=== PATIENT | female | born 1940 | race Caucasian/White ===

== ENCOUNTER 2017-12-13 02:36 | Inpatient (IN) | payer OTHER ==
[2017-12-13] VITALS (8 sets, daily range): BP systolic 114–137; BP diastolic 50–61
[~2017-12-13] VITALS: Ht 152.4 cm; Wt 60.3 kg
--- NOTE | ~2017-12-13 | HC ---
[facility] [place] [address] CONSULTATION Name: EMILE SHEEHAN Room #: 359-P [facility] IN M.R.#: [id number] Admission: 12/13/17 Attend Phys: Herminio Lira MD Discharge: 12/16/17 Date of : 38 Report #: [id number] THIS REPORT FOR: //name// CC: Erasmo Lira DATE OF SERVICE: 12/16/2017 HISTORY OF PRESENT ILLNESS: The patient is a 77-year-old white female with history of diabetes mellitus type 2 with diabetic neuropathy, hypertension, hyperlipidemia, was admitted with elevated blood sugars 400-500, diagnosed with bilateral lower extremity cellulitis as well as urinary tract infection. She has been given IV antibiotics. Some lability with her blood sugars. She does have a premorbid seizure disorder, on Keppra, which is being monitored. She has generalized weakness. We are seeing her in rehabilitation medicine consultation. 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 HABITS: No history of tobacco or alcohol abuse. MEDICATIONS: Please see the full medication listing. This list includes vitamins, herbals, and supplements. ALLERGIES: AMOXICILLIN, DOXYCYCLINE, OXYCODONE, PENICILLIN. SOCIAL HISTORY: Lives in her daughter's house on the main floor. She sleeps on a couch, uses a cane outside of the home, is one step in and 12 steps inside. Daughter works during the day and the patient is home alone with the pets. She notes that the dog does not allow other people in the house. She has concerns regarding where she is going to go from here. REVIEW OF SYSTEMS: No current complaints of chest pain, shortness of breath, abdominal discomfort. PHYSICAL EXAMINATION: GENERAL: She is a 77-year-old white female in no obvious distress. VITAL SIGNS: Last recorded temperature 97.7, pulse 72, respirations 18, blood pressure 135/64. NEUROLOGIC: She is alert, decreased vision as noted above. Facies appeared symmetric. Follows basic 1 step commands and appears to be a good historian. She is somewhat verbose. EXTREMITIES: She has functional range of motion of both upper extremities with strength grade 4-/5. DTRs are trace to 1. Lower extremities, no focal calf [address] [address] CONSULTATION Name: EMILE SHEEHAN Room #: 359-P [facility] IN M.R.#: [id number] Admission: 12/13/17 Attend Phys: Herminio Lira MD Discharge: 12/16/17 Date of : 39 Report #: [id number] swelling. Functional range of motion, strength is grade 4/5. Tone appeared to be intact. She was able to sit to stand with contact guard assistance. She is now ambulating 500 feet with a front-wheeled walker, contact guard, although at the end of the walk, she became weaker and needed more assistance. ASSESSMENT: A 77-year-old white female with the following problem list: 1. Bilateral lower extremity cellulitis. 2. Urinary tract infection. 3. Generalized weakness and debilitation. 4. Diabetes mellitus with labile blood sugars. 5. Hyperlipidemia. 6. Seizure disorder. PLAN: Her functional level is improving and she was able to ambulate up a longer distance with less assistance with the walker. Sit to stand transfers are contact guard. Home situation is somewhat challenging as the daughter works and it sounds like the pets that are there do not allow other people in the house. I did not see that she would meet diagnostic criteria for an acute [address] [place] [address] inpatient rehabilitation stay and her overall functional level is improving. We will have case management check into other rehab therapy options for her. Thank you for asking us to assist in this patient's care. <ELECTRONICALLY SIGNED> By: Brad Sweet MD 12/17/17 1429 [id number] [id number] Brad Sweet MD /nt
[2017-12-13 03:20] LABS: BE(vivo) 0.5 mmol/L (-2 to +3); HCO3 26.3 mmol/L (22.0-26.0)
[2017-12-13] MEDS ORDERED: ERYTHROMYCIN E3.5 G2 OPHTHALMIC (03:20)
[2017-12-13] MEDS ORDERED: ATORVASTATIN CA40 MG PO (03:20)
[2017-12-13] MEDS ORDERED: INSULIN SYRING1 EA10 INJECTION (03:21)
[2017-12-13] MEDS ORDERED: KEPPRA XR500 MG PO (03:21)
[2017-12-13] MEDS ORDERED: SYNTHROID75 MCG PO (03:21)
[2017-12-13] MEDS ORDERED: LOSARTAN POTAS100 MG PO (03:22)
[2017-12-13] MEDS ORDERED: GLIPIZIDE-METF1 EAC2 PO (03:22)
[2017-12-13] MEDS ORDERED: ASPIR 8181 MG PO (03:22)
[2017-12-13] MEDS ORDERED: LANTUS100 UNIT/M SUBQ (03:22)
[2017-12-13 03:25] LABS: URINE BILIRUBIN NEGATIVE (Negative); URINE BLOOD 1+ (Negative); URINE COLOR YELLOW; URINE GLUCOSE-RANDOM* 3+ (Negative); URINE KETONES TRACE (Negative); URINE NITRITE-REFLEX NEGATIVE (Negative); URINE PROTEIN (DIPSTICK) 1+ (Negative); URINE UROBILINOGEN 0.2 E.U./dl (0.2-1.0)
[2017-12-13 03:25] LABS: ABSOLUTE NEUTROPHILS 8.1 thou/uL (1.4-8.2); BASOPHILS 0.6 % (0.0-2.0); EOSINOPHILS 1.2 % (0.0-3.0); HEMATOCRIT 37.4 % (37.0-47.0); HEMOGLOBIN 12.7 gm/dL (12.0-15.0); LYMPHOCYTES 21.2 % (24.0-44.0); MCH 32.2 pg (26.0-34.0); MCHC 34.1 g/dL (28.0-37.0); MCV 94.4 fL (80.0-100.0); MONOCYTES 4.9 % (1.0-8.0); PLATELET COUNT 221 thou/uL (150-400); POLYS 72.1 % (36.0-66.0); RBC 3.96 mil/uL (4.20-5.00); RDW 13.1 % (10.5-14.5); WBC 11.2 thou/uL (4.0-11.0)
[2017-12-13 03:32] LABS: CALCIUM 9.1 mg/dL (8.5-10.1); CREATININE 1.2 mg/dL (0.6-1.0)
[2017-12-13 03:33] LABS: URINE CLARITY CLOUDY; URINE LEUKOCYTES-REFLEX 2+ (Negative)
[2017-12-13 03:38] LABS: ALBUMIN 3.5 g/dL (3.4-5.0); TOTAL BILIRUBIN 0.9 mg/dL (<0.1-1.0); TOTAL PROTEIN 7.3 g/dL (6.4-8.2)
[2017-12-13 03:40] LABS: BACTERIA-REFLEX >30 Many /HPF (None Seen); CASTS None Seen /LPF (None Seen); CRYSTALS None Seen /LPF (None Seen); MUCUS 0-3 Light strn/LPF (None Seen); SQUAMOUS 0-3 Few /LPF (0-3); URINE RBC 0-2 Rare /HPF (0-2); URINE WBC-REFLEX >25 Many /HPF (0-5); WBC CLUMPS Packed (None Seen)
[2017-12-13 23:08] LABS: GLYCOHEMOGLOBIN (HGB A1C) 9.8 % (4.8-5.6)
[2017-12-14 03:26] VITALS: BP 122/59
[2017-12-14 06:15] LABS: HEMATOCRIT 33.5 % (37.0-47.0); HEMOGLOBIN 11.7 gm/dL (12.0-15.0); MCH 32.4 pg (26.0-34.0); MCHC 34.8 g/dL (28.0-37.0); MCV 93.3 fL (80.0-100.0); RBC 3.59 mil/uL (4.20-5.00); WBC 8.3 thou/uL (4.0-11.0)
[2017-12-14 06:27] LABS: CALCIUM 8.3 mg/dL (8.5-10.1); CREATININE 0.9 mg/dL (0.6-1.0); POTASSIUM 3.5 mmol/L (3.5-5.1)
[2017-12-14 08:01] VITALS: BP 121/75
[2017-12-14 17:07] VITALS: BP 132/65
[2017-12-14 19:12] VITALS: BP 133/43
[2017-12-15 02:44] VITALS: BP 136/66
[2017-12-15 06:41] LABS: HEMATOCRIT 32.9 % (37.0-47.0); HEMOGLOBIN 11.6 gm/dL (12.0-15.0); MCHC 35.3 g/dL (28.0-37.0); MCV 93.4 fL (80.0-100.0); RBC 3.53 mil/uL (4.20-5.00)
[2017-12-15 07:03] LABS: CALCIUM 8.3 mg/dL (8.5-10.1); POTASSIUM 3.9 mmol/L (3.5-5.1)
[2017-12-15 07:47] VITALS: BP 139/66
[2017-12-15 16:13] VITALS: BP 147/63
[2017-12-15 20:34] VITALS: BP 136/66
[2017-12-16 03:50] VITALS: BP 126/57
[2017-12-16 07:40] VITALS: BP 135/64
[2017-12-16 09:54] VITALS: BP 136/53
[2017-12-16] MEDS ORDERED: LEVAQUIN 500 M500 M1 PO (12:32)
[2017-12-16] MEDS ORDERED: VITAMIN B122500 MC1 PO (14:57)
== END 2017-12-16 15:50 | DRG 602 ==
LOC: ER 02:36 → 3W 03:36 → EROBS 03:36 → 3W 03:58
PROVIDERS: Emergency Medicine; Internal Medicine; Nurse Practitioner Family
DX: L03.116 Cellulitis of left lower limb (principal); N17.0 Acute kidney failure with tubular necrosis; N39.0 Urinary tract infection, site not specified; E11.65 Type 2 diabetes mellitus with hyperglycemia; L03.115 Cellulitis of right lower limb; I10 Essential (primary) hypertension; H54.61 Unqualified visual loss, right eye, normal vision left eye; E78.5 Hyperlipidemia, unspecified; E11.40 Type 2 diabetes mellitus with diabetic neuropathy, unspecified; M19.90 Unspecified osteoarthritis, unspecified site; G40.909 Epilepsy, unspecified, not intractable, without status epilepticus; D72.829 Elevated white blood cell count, unspecified; M62.84 Sarcopenia; E53.8 Deficiency of other specified B group vitamins; Z88.6 Allergy status to analgesic agent; Z88.1 Allergy status to other antibiotic agents; Z88.0 Allergy status to penicillin; Z79.899 Other long term (current) drug therapy; Z79.82 Long term (current) use of aspirin
CPT/HCPCS: 10879

== ENCOUNTER 2018-05-22 15:10 | Emergency (ER) | payer OTHER ==
[~2018-05-22] VITALS: Ht 152.4 cm; Wt 63.5 kg
--- NOTE | ~2018-05-22 | EKG ---
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: : 1940 Requested By: Devin Jean-Baptiste Order Number: [id number] MD: Richard Zhou Measurements Intervals [place] Rate: 82 P: 85 GA: 146 QRS: 54 QRSD: 99 T: 42 QT: 377 QTc: 441 Interpretive Statements Sinus rhythm No significant abnormality Compared to ECG 06/02/2015 01:35:12 No significant change was found Electronically Signed On 05-23-2018 8:38:25 STANDARD MACHINE STITCHER by Richard Zhou [email or web address] <ELECTRONICALLY SIGNED> By: Richard Zhou MD, [facility] 05/23/18 0838 1552 1552 Richard Zhou MD, FACC /EPI
[~2018-05-22 15:10] MED LIST: ASPIR 8181 MG PO; ATORVASTATIN CA40 MG PO; ERYTHROMYCIN E3.5 G2 OPHTHALMIC; GLIPIZIDE-METF1 EAC2 PO; INSULIN SYRING1 EA10 INJECTION; KEPPRA XR500 MG PO; LANTUS SUBQ; LANTUS100 UNIT/M SUBQ; LEVAQUIN 500 M500 M1 PO; LOSARTAN POTAS100 MG PO; NORVASC2.5 MG PO; SYNTHROID100 MC1 PO; SYNTHROID75 MCG PO; VITAMIN B122500 MC1 PO
[2018-05-22 15:44] LABS: BASOPHILS 0.4 % (0.0-2.0); EOSINOPHILS 0.1 % (0.0-3.0); HEMATOCRIT 38.1 % (37.0-47.0); HEMOGLOBIN 12.8 gm/dL (12.0-15.0); LYMPHOCYTES 11.7 % (24.0-44.0); MCH 31.8 pg (26.0-34.0); MCHC 33.6 g/dL (28.0-37.0); MCV 94.6 fL (80.0-100.0); MONOCYTES 3.7 % (1.0-8.0); PLATELET COUNT 225 thou/uL (150-400); POLYS 84.1 % (36.0-66.0); RBC 4.02 mil/uL (4.20-5.00); RDW 12.7 % (10.5-14.5); WBC 14.3 thou/uL (4.0-11.0)
[2018-05-22 15:51] LABS: ANION GAP 11 mmol/L (7-16); BUN 17 mg/dL (7-18); CALCIUM 9.1 mg/dL (8.5-10.1); CHLORIDE 104 mmol/L (98-107); CO2 27 mmol/L (21-32); CREATININE 0.9 mg/dL (0.6-1.0); GLUCOSE 160 mg/dL (74-106); POTASSIUM 3.5 mmol/L (3.5-5.1); SODIUM 142 mmol/L (136-145)
[2018-05-22 15:56] LABS: URINE BILIRUBIN NEGATIVE (Negative); URINE BLOOD NEGATIVE (Negative); URINE CLARITY SL CLOUDY; URINE COLOR YELLOW; URINE GLUCOSE-RANDOM* NEGATIVE (Negative); URINE KETONES NEGATIVE (Negative); URINE LEUKOCYTES-REFLEX NEGATIVE (Negative); URINE NITRITE-REFLEX NEGATIVE (Negative); URINE PROTEIN (DIPSTICK) TRACE (Negative); URINE SPECIFIC GRAVITY >= 1.030 (1.005-1.035); URINE UROBILINOGEN 0.2 E.U./dl (0.2-1.0)
[2018-05-22 16:01] LABS: TROPONIN-I <0.06 ng/mL (<0.06)
[2018-05-22 16:52] LABS: SQUAMOUS 0-3 Few /LPF (0-3)
[2018-05-22 16:53] LABS: AMORPHOUS URATES Moderate /LPF (None Seen); BACTERIA 1-9 Few /HPF (None Seen); CASTS None Seen /LPF (None Seen); URINE RBC None Seen /HPF (0-2); URINE WBC None Seen /HPF (0-5)
[2018-05-22 18:03] VITALS: BP 166/58
== END 2018-05-22 18:04 | disposition home or self-care (01) ==
LOC: ER 15:10
PROVIDERS: Emergency Medicine
DX: S00.03XA Contusion of scalp, initial encounter (principal); R42 Dizziness and giddiness; E11.40 Type 2 diabetes mellitus with diabetic neuropathy, unspecified; E03.9 Hypothyroidism, unspecified; M19.90 Unspecified osteoarthritis, unspecified site; I10 Essential (primary) hypertension; E78.5 Hyperlipidemia, unspecified; Z88.8 Allergy status to other drugs, medicaments and biological substances; Z79.4 Long term (current) use of insulin; W18.39XA Other fall on same level, initial encounter; Y92.89 Other specified places as the place of occurrence of the external cause; Y93.01 Activity, walking, marching and hiking; Y99.8 Other external cause status

== ENCOUNTER 2018-09-03 20:27 | Emergency (ER) | payer OTHER ==
[~2018-09-03] VITALS: Ht 154.9 cm; Wt 68.0 kg
[2018-09-03 21:21] LABS: BE(vivo) -0.4 mmol/L (-2 to +3); HCO3 23.9 mmol/L (22.0-26.0); PCO2 VENOUS 37.8 mmHg (41.0-51.0); PO2 VENOUS 37.2 mmHg (35.0-45.0)
[2018-09-03 21:32] LABS: HEMATOCRIT 38.6 % (37.0-47.0); HEMOGLOBIN 13.3 gm/dL (12.0-15.0); MCH 32.2 pg (26.0-34.0); MCHC 34.4 g/dL (28.0-37.0); MCV 93.7 fL (80.0-100.0); RBC 4.12 mil/uL (4.20-5.00); RDW 13.9 % (10.5-14.5)
[2018-09-03 21:44] LABS: ANION GAP 11 mmol/L (7-16); BUN 14 mg/dL (7-18); CALCIUM 9.6 mg/dL (8.5-10.1); CHLORIDE 101 mmol/L (98-107); CO2 26 mmol/L (21-32); CREATININE 0.9 mg/dL (0.6-1.0); GLUCOSE 156 mg/dL (74-106); POTASSIUM 3.9 mmol/L (3.5-5.1); SODIUM 138 mmol/L (136-145)
[2018-09-03 21:59] LABS: ALBUMIN 3.7 g/dL (3.4-5.0); LIPASE 97 U/L (73-393); SGOT 22 U/L (15-37); SGPT 17 U/L (30-65); TOTAL BILIRUBIN 0.7 mg/dL (<0.1-1.0); TOTAL PROTEIN 7.5 g/dL (6.4-8.2); TROPONIN-I <0.06 ng/mL (<0.06)
[2018-09-03 22:12] LABS: URINE BILIRUBIN NEGATIVE (Negative); URINE BLOOD NEGATIVE (Negative); URINE CLARITY CLEAR; URINE COLOR YELLOW; URINE GLUCOSE-RANDOM* NEGATIVE (Negative); URINE KETONES TRACE (Negative); URINE LEUKOCYTES-REFLEX NEGATIVE (Negative); URINE NITRITE-REFLEX NEGATIVE (Negative); URINE PROTEIN (DIPSTICK) NEGATIVE (Negative); URINE SPECIFIC GRAVITY <= 1.005 (1.005-1.035); URINE UROBILINOGEN 0.2 E.U./dl (0.2-1.0)
[2018-09-03] MEDS ORDERED: AMPICILLIN TRI500 MG PO (23:44)
[2018-09-03] MEDS ORDERED: FOLIC ACID1 MG PO (23:45)
[2018-09-04 01:46] VITALS: BP 144/57
--- NOTE | 2018-09-04 08:34 | EKG ---
[address] [address] ELECTROCARDIOGRAM REPORT Name: EIMLE SHEEHAN [facility] [id number] ������������������ Admission: 09/03/18 ������������������ Attend Phys: Discharge: 09/04/18 ������������������ Date of : 39 Report #: [id number] ����������������������������������������������������������������� [id number] THIS REPORT FOR: //name// [facility] ED Test Date: 2018-09-03 Test Time: 21:20:40 Pat Name: EMILE SHEEHAN Department: Room: Gender: F Defensive Driving Instructor: : 1940 Requested By: Laina Vann Order Number: [id number] MD: Efe Kang Measurements Intervals [place] Rate: 82 P: VT: QRS: 33 QRSD: 75 T: 27 QT: 382 QTc: 446 Interpretive Statements Sinus rhythm Compared to ECG 05/22/2018 15:52:15 Electronically Signed On 09-04-2018 8:34:13 CDT by Efe Kang [email or web address] ��������������������������������������������� <ELECTRONICALLY SIGNED> ���������������������������������������� By: Efe Kang MD ��������������������������������������������� 09/04/18 0834 212 19 Efe Kang MD /REBECCA
== END 2018-09-04 01:48 | disposition home or self-care (01) ==
LOC: ER 20:27
PROVIDERS: Student in an Organized Health Care Education/Training Program
DX: R19.7 Diarrhea, unspecified (principal); R25.1 Tremor, unspecified; E11.40 Type 2 diabetes mellitus with diabetic neuropathy, unspecified; E03.9 Hypothyroidism, unspecified; M19.90 Unspecified osteoarthritis, unspecified site; I10 Essential (primary) hypertension; E78.5 Hyperlipidemia, unspecified; Z88.1 Allergy status to other antibiotic agents; Z88.8 Allergy status to other drugs, medicaments and biological substances; Z79.4 Long term (current) use of insulin

== ENCOUNTER 2020-05-30 15:29 | Inpatient (IN) | payer OTHER ==
[~2020-05-30] VITALS: Ht 154.9 cm; Wt 56.7 kg
[2020-05-30 15:29] VITALS: BP 173/63
[~2020-05-30 15:29] MED LIST changes: +AMPICILLIN TRI500 MG PO; +FOLIC ACID1 MG PO
[2020-05-30 16:02] LABS: ABSOLUTE NEUTROPHILS 7.7 thou/uL (1.4-8.2); BASOPHILS 0.3 % (0.0-2.0); EOSINOPHILS 0.3 % (0.0-3.0); HEMATOCRIT 36.5 % (37.0-47.0); LYMPHOCYTES 17.8 % (24.0-44.0); MCH 33.4 pg (26.0-34.0); MCV 101.4 fL (80.0-100.0); PLATELET COUNT 211 thou/uL (150-400); POLYS 74.6 % (36.0-66.0); RDW 13.7 % (10.5-14.5); WBC 10.3 thou/uL (4.0-11.0)
[2020-05-30] MEDS ORDERED: METFORMIN HCL500 M3 PO (16:03)
[2020-05-30 16:19] LABS: ANION GAP 10 mmol/L (7-16); BUN 20 mg/dL (7-18); CALCIUM 9.8 mg/dL (8.5-10.1); CHLORIDE 105 mmol/L (98-107); CO2 25 mmol/L (21-32); CREATININE 0.9 mg/dL (0.6-1.0); GLUCOSE 155 mg/dL (74-106); POTASSIUM 3.7 mmol/L (3.5-5.1); SODIUM 140 mmol/L (136-145)
[2020-05-30 16:24] LABS: URINE BILIRUBIN NEGATIVE (Negative); URINE BLOOD NEGATIVE (Negative); URINE CLARITY CLEAR; URINE COLOR YELLOW; URINE GLUCOSE-RANDOM* NEGATIVE (Negative); URINE KETONES NEGATIVE (Negative); URINE PROTEIN (DIPSTICK) NEGATIVE (Negative); URINE SPECIFIC GRAVITY 1.025 (1.005-1.035); URINE UROBILINOGEN 0.2 E.U./dl (0.2-1.0)
[2020-05-30 16:26] LABS: URINE LEUKOCYTES-REFLEX 1+ (Negative); URINE NITRITE-REFLEX POSITIVE (Negative)
[2020-05-30 16:29] LABS: AMP/METHAMP Negative (Negative); BARBITURATES Negative (Negative); BENZODIAZEPINES Negative (Negative); COCAINE Negative (Negative); METHADONE Negative (Negative); OPIATES Negative (Negative); PCP Negative (Negative)
[2020-05-30 16:36] LABS: ALBUMIN 3.6 g/dL (3.4-5.0); BACTERIA-REFLEX >30 Many /HPF (None Seen); CASTS None Seen /LPF (None Seen); CRYSTALS None Seen /LPF (None Seen); MAGNESIUM 1.9 mg/dL (1.8-2.4); SGOT 64 U/L (15-37); SGPT 36 U/L (30-65); SQUAMOUS 0-3 Few /LPF (0-3); TOTAL BILIRUBIN 0.6 mg/dL (0.2-1.0); TOTAL PROTEIN 7.1 g/dL (6.4-8.2); TROPONIN-I <0.06 ng/mL (<0.06); URINE RBC None Seen /HPF (0-2); URINE WBC-REFLEX 6-15 Few /HPF (0-5)
[2020-05-30] MEDS ORDERED: LEVO-T75 MCG PO (18:30)
[2020-05-30] MEDS ORDERED: NOVOLOG100 UNIT/1 SUBQ (18:31)
[2020-05-30] MEDS ORDERED: LEVOTHYROXINE88 MC1 PO (18:32)
[2020-05-30 21:14] VITALS: BP 136/58
[2020-05-30 21:27] VITALS: BP 118/49
[2020-05-30 22:09] VITALS: BP 128/55
--- NOTE | 2020-05-31 03:54 | NUR ---
ASSUMED CARE OF PT FROM ED AT 2215HRS. PT AOX1-2 AND CAN BE CONFUSED AND FORGETFUL. FALL PRECAUTION IN PLACE. PT WAS ORIENTED TO THE UNIT AND HER ROOM. PT IS A POOR HISTORIAN. SEIZURE PRECAUTION IN PLACE. PT DENIED PAIN, NAUSEA OR SOA. PT HAS REDNESS AROUND THE COCCYX AREA AND HAS DRY FEET. DIAMOND IN PLACE AND IS PATIENT. ORDERS RECEIVED AND STARTED. PT TURNED Q2H. PT WAS ABLE TO GET COMFORTABLE AND SLEEP PART OF THE SHIFT. VSS AND NO S/S OF ACUTE DISTRESS. WILL CONTINUE TO MONITOR.
[2020-05-31 03:56] VITALS: BP 122/47
--- NOTE | 2020-05-31 07:14 | EKG ---
[address] [address] ELECTROCARDIOGRAM REPORT Name: LATESHA SHEEHANNDA Fredo Room #: 435-P ADM IN M.R.#: [id number] Admission: 05/30/20 Attend Phys: Kenny Macias MD Discharge: Date of : 39 Report #: [id number] [facility] ED Test Date: 2020-05-30 Test Time: 16:01:32 Pat Name: EMILE SHEEHAN Department: Room: [facility] Gender: F Governor Assembler Hydraulic: JUAN : 1940 Requested By: Marcial Nix Order Number: [id number] MD: Dorian Syed Measurements Intervals [place] Rate: 88 P: 63 WI: QRS: 45 QRSD: 90 T: 51 QT: 373 QTc: 452 Interpretive Statements NSR Artifact in lead(s) I,II,aVR,aVL,aVF Compared to ECG 09/03/2018 21:20:40 Electronically Signed On 05-31-2020 7:14:13 RAIL OPERATOR by Dorian Syed [email or web address] <ELECTRONICALLY SIGNED> By: Dorian Syed MD, [facility] 05/31/20 0714 160 160 Dorian Syed MD, [facility] /EPI
[2020-05-31 08:00] VITALS: BP 113/45
--- NOTE | 2020-05-31 09:58 | NUR ---
ASSESSMENT: CM REVIEWED CHART AND SPOKE WITH PATIENT. PT WAS ADMITTED DUE TO SEIZURE LIKE ACTIVITY AND UTI. PT LIVES AT HOME WITH HER OLDEST DAUGHTER ORACIO IN A HOUSE. PT HAS ABOUT ONE STEP TO ENTER THE HOME AND NORMALLY SLEEPS ON THE COUCH ON THE MAIN LEVEL. PT HAS ABOUT 14 STEPS WITH HANDRAILS IF SHE WERE TO GO TO HER BEDROOM ON THE SECOND LEVEL. DAUGHTER REPORTS HER MOTHER SPENDS 99 PERCENT OF THE TIME ON THE MAIN LEVEL. PT NORMALLY USES A QUAD CANE FOR AMBULATION. PT HAS HAD [facility]CS IN THE PAST BUT NOT RECENTLY. CM DISCUSSED ROLE. CM WILL CONTINUE TO FOLLOW TO ASSIST NEEDED PHYSICAL THERAPY WILL SEE PATIENT AND CM WILL FOLLOW FOR RECOMMENDATIONS.
--- NOTE | 2020-05-31 12:19 | NUR ---
ASSUMED CARE AT 0700. PT IS A&O 1-2. PT IS A SET UP FOR MEALS. PT CAN EAT INDEPENDENTLY. ROMELIA. VICKYG WNL. FALL PRECAUTION
[2020-05-31 16:38] VITALS: BP 128/68
[2020-05-31 19:45] VITALS: BP 138/63
[2020-06-01 04:10] VITALS: BP 128/50
[2020-06-01 06:11] LABS: HEMOGLOBIN 11.6 gm/dL (12.0-15.0); MCH 33.8 pg (26.0-34.0); MCHC 33.2 g/dL (28.0-37.0); MCV 101.7 fL (80.0-100.0); RBC 3.44 mil/uL (4.20-5.00); RDW 13.8 % (10.5-14.5)
[2020-06-01 06:31] LABS: CALCIUM 8.7 mg/dL (8.5-10.1); CREATININE 0.9 mg/dL (0.6-1.0); MAGNESIUM 1.8 mg/dL (1.8-2.4); POTASSIUM 3.9 mmol/L (3.5-5.1)
--- NOTE | 2020-06-01 07:42 | HC ---
[facility] [place] [address] CONSULTATION Name: EMILE SHEEHAN Room #: 435-P ADM IN M.R.#: [id number] Admission: 05/30/20 Attend Phys: Kenny Macias MD Discharge: Date of : 39 Report #: [id number] THIS REPORT FOR: cc: FAM - No family physician/PCP FAM - No family physician/PCP Arlene Hernandez DPM ~ DATE OF SERVICE: 05/30/2020 HISTORY OF PRESENT ILLNESS: The patient is being seen at bedside by Podiatry for elongated, thickened, fungal, painful toenails. She denies any recent treatment to her feet, states they are painful with ambulation. The patient's feet also with poor hygiene and thick, dry skin especially to the bottom of the soles. The patient was admitted a few days ago for twitching and issues with her history of seizures. Pt is also a diabetic. LOWER EXTREMITY PHYSICAL EXAMINATION: On physical exam, for the feet, palpable pedal pulses, CFT brisk to all toes. There are hammertoes 2 through 5, bilateral. All toenails are thickened, dystrophic, fungal, elongated and brittle with subungual debris. There are no breaks in the skin or signs of infection. There is dry, flaky hyperkeratotic, loose tissue to encompassing multiple areas of the foot and ankles, bilateral. Her light touch sensation is diminished to all pedal dermatomes. Muscle strength +5/5 to all pedal groups. ASSESSMENT AND PLAN: Following alcohol prep, sharp debridement of all fungal toenails noted above to a healthier base, using a sterile 15 nail forceps. No micro bleeding occurred. Recommend good hygiene with soap and water daily washed and a moisturizer. The patient also with diabetes and currently on insulin. It appears, per note, the patient will be discharged to a nursing home facility soon. . Recommend outpatient Podiatry clinic evaluations at least every 3-6 months <ELECTRONICALLY SIGNED> By: Arlene Hernandez DPM 06/01/20 0742 1700 2209 Arlene Hernandez DPM /nt
[2020-06-01 08:30] VITALS: BP 118/58
--- NOTE | 2020-06-01 09:39 | NUR ---
ASSUMED CARE AT 0700. PT IS A&O X1. PT HAS SOFT ABD. HEART AND LUNGS SOUNDS ARE REGULAR. SCD HOSE ARE IN PLACE. SEIZURE PRECAUTION. FALL PRECAUTION. CALL LIGHT WITHIN REACH. SKIN IS PEELING EVERYWHERE. PT DENIES ANY PAIN,N,V. WILL CONTINUE TO MONITOR SKIN. PT HAS REDNESS ON BUTTOCK. ZGUARD IS APPLIED. PT IS CONFUSED AND FORGETFUL. FEET IS VERY DRY. DIAMOND IS IN PLACE. WILL CONTINUE TO MONITOR. VSS.
--- NOTE | 2020-06-01 13:39 | NUR ---
on-going assessment: CM REVIEWED CHART AND SPOKE WITH Apryl TELLEZ. Apryl LIASON STATING THEY CAN ACCEPT PT TO [facility]. CM NOTIFIED PT AND HER DAUGHTER ORACIO AND THEY ARE AGREEABLE WITH THE PLAN. CM NOTIFIED ATTENDING THAT Apryl CAN ACCEPT. Apryl REQUEST A NEGATIVE COVID TEST WITHIN 24-48 HRS AND PT HAD A TEST COMPLETED 05/30 AT 1540 AND NOTIFIED Apryl TELLEZ.
[2020-06-01] MEDS ORDERED: KEPPRA 500 MG500 MG PO (13:47)
[2020-06-01] MEDS ORDERED: PEPCID20 MG PO (13:47)
[2020-06-01 17:19] VITALS: BP 124/54
[2020-06-01 19:23] VITALS: BP 135/59
--- NOTE | 2020-06-02 02:35 | NUR ---
PLEASANT LADY. A LITTLEFORGETFUL. CONTINUES ON IV FLUIDS AND IV ABTS. SWALLOWS MEDS WITH NO TROUBLE. AFEBRILE.REPOSITIONS SELF IN BED WELL. PLAN FOR DISCHARGE TO REHAB/[facility] TOMORROW.
[2020-06-02 06:06] LABS: HEMATOCRIT 35.8 % (37.0-47.0); HEMOGLOBIN 11.8 gm/dL (12.0-15.0); MCV 103.2 fL (80.0-100.0); RBC 3.47 mil/uL (4.20-5.00); RDW 13.8 % (10.5-14.5)
[2020-06-02 06:25] LABS: CALCIUM 8.9 mg/dL (8.5-10.1); CREATININE 0.9 mg/dL (0.6-1.0); POTASSIUM 4.5 mmol/L (3.5-5.1)
[2020-06-02 07:46] VITALS: BP 114/57
--- NOTE | 2020-06-02 10:07 | NUR ---
ON-GOING ASSESSMENT: CM REVIEWED CHART AND SPOKE WITH Apryl LIASON WHO REPORTS PT WAS UNABLE TO GO TO 5[facility] LAST NIGHT DUE TO STAFFING. PLANS ARE FOR PT TO GO TO [facility] TODAY. HOWEVER THEY ARE REQUESTING ANOTHER NEGATIVE COVID TEST BE COMPELTED PRIOR TO GOING TO [facility] SINCE IT IS NOW PAST 48 HRS. CM NOTIFIED BEDSIDE RN. COVID TEST ORDERED AND IF RESULT IS NEGATIVE PT WILL DISCHARGE TO [facility] TODAY. PT AND DAUGTHER AWARE.
== END 2020-06-02 15:32 | DRG 101 ==
LOC: ER 15:29 → 4S 17:56 → EROBS 17:56 → ER 21:48 → 4S 21:48
PROVIDERS: Emergency Medicine; ADMIT Internal Medicine; ATTEND Internal Medicine
PROC: 0HBRXZZ Excision of Toe Nail, External Approach (ICD-10-PCS; principal; 2020-05-30)
DX: G40.109 Localization-related (focal) (partial) symptomatic epilepsy and epileptic syndromes with simple partial seizures, not intractable, without status epilepticus (principal); M62.82 Rhabdomyolysis; N39.0 Urinary tract infection, site not specified; Z20.828 Contact with and (suspected) exposure to other viral communicable diseases; H54.61 Unqualified visual loss, right eye, normal vision left eye; E03.9 Hypothyroidism, unspecified; M19.90 Unspecified osteoarthritis, unspecified site; I10 Essential (primary) hypertension; B96.1 Klebsiella pneumoniae [K. pneumoniae] as the cause of diseases classified elsewhere; G47.00 Insomnia, unspecified; E78.5 Hyperlipidemia, unspecified; E11.42 Type 2 diabetes mellitus with diabetic polyneuropathy; R63.4 Abnormal weight loss; Z68.23 Body mass index [BMI] 23.0-23.9, adult; Z79.899 Other long term (current) drug therapy; Z88.8 Allergy status to other drugs, medicaments and biological substances
CPT/HCPCS: 10100; 10195

== ENCOUNTER 2020-06-01 14:52 | Inpatient (IN) | payer OTHER ==
[~2020-06-01] VITALS: Ht 154.9 cm; Wt 56.7 kg
[~2020-06-01 14:52] MED LIST changes: +KEPPRA 500 MG500 MG PO; +LEVO-T75 MCG PO; +LEVOTHYROXINE88 MC1 PO; +METFORMIN HCL500 M3 PO; +NOVOLOG100 UNIT/1 SUBQ; +PEPCID20 MG PO
[2020-06-02 16:17] VITALS: BP 124/58
--- NOTE | 2020-06-02 18:27 | NUR ---
ASSUMED CARE OF PT AT 1600 WHEN PT BROUGHT TO UNIT. RECEIVED REPORT FROM ROSALIO PRIOR TO TRANSFER. ADMISSION HX AND ASSESSMENT COMPLETED, ADMISSION VITAL SIGNS, EDUCATION, HEIGHT AND WEIGHT COMPLETED. CONSULTS CALLED, CONSENTS SIGNED. ORDERS RECEIVED TO RESTART INSULIN ORDERED DOWNSTAIRS. ACCU CHECKS ACHS. PT IS FORGETFUL AND A&OX3. VITAL SIGNS ARE STABLE. PT DENIES PAIN. FALL PRECAUTIONS IN PLACE AND NURSING WILL CONTINUE TO MONITOR.
[2020-06-02 20:21] VITALS: BP 124/46
--- NOTE | 2020-06-03 02:37 | NUR ---
LANTUS AND SLIDING SCALE INSULIN GIVEN AT FOR BLOOD SUGAR OF 319. PATIENT DOES NOT KNOW WHEN HER LAST BM WAS AND IS UNCLEAR ABOUT SEIZURE HISTORY DETAILS. 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
[2020-06-03 07:18] VITALS: BP 132/53
[2020-06-03 07:52] VITALS: BP 132/53
[2020-06-03 09:28] LABS: HEMATOCRIT 39.9 % (37.0-47.0); MCH 33.1 pg (26.0-34.0); MCHC 32.5 g/dL (28.0-37.0); MCV 101.9 fL (80.0-100.0); RBC 3.92 mil/uL (4.20-5.00); RDW 13.7 % (10.5-14.5); WBC 7.6 thou/uL (4.0-11.0)
[2020-06-03 09:38] LABS: CALCIUM 9.4 mg/dL (8.5-10.1); POTASSIUM 3.7 mmol/L (3.5-5.1)
--- NOTE | 2020-06-03 19:58 | NUR ---
ASSUMED CARE OF PT AT 0700. PT IS A&OX1-2 AND VITAL SIGNS ARE STABLE. PT DENIES PAIN AND PARTICIPATED IN SCHEDULED THERAPIES. ORDERS FOR CLAMPING OF DIAMOND, DIAMOND WAS CLAMPED FOR 4 HOURS WITH 600 ML ON BLADDER SCANNER, PT DENIED FEELING FULLNESS AT THAT TIME. CATHETER UNCLAMPED AND EMPTIED APPROXIMATELY 600ML AND DIAMOND LEFT IN AT THIS TIME. FALL PRECAUTIONS IN PLACE AND NURSING WILL CONTINUE AT THIS TIME.
[2020-06-03 20:45] VITALS: BP 132/56
[2020-06-04 02:06] LABS: GLYCOHEMOGLOBIN (HGB A1C) 7.9 % (4.8-5.6)
--- NOTE | 2020-06-04 02:32 | NUR ---
PATIENT UP IN CHAIR ALL EVENING AND WAS ABLE TO WALK TO BED WITH 1 PERSON ASSIST AND CANE. LOBO TO MARCUS. TURNING SELF IN BED. PATIENT SLEEPING WELL IN FULL VIEW OF NURSES STATION
[2020-06-04 07:10] VITALS: BP 111/38
--- NOTE | 2020-06-04 15:03 | NUR ---
Alert and orientated X4. Calm, cooperative and compliant. Mentions father/stepfather/husbands service in often as well as time spent as a teenager in [place]. Able to ambulate a few steps and assist with transferring. Breath sounds clear. Reg HR auscultated. Color pink with brisk capillary refill and palpable peripheral pulses. Yellow urine per colby to DD. Active bowel sounds over soft, rounded abdomen. Large, formed brown stool per commode. BG 70 this AM, glargine insulin held and Dr. Yan notified. Glargine dose decreased to 16U SQ and given mid AM per order. Currently sitting quietly in room without s/o distress. Participated in therapies t/o day.
[2020-06-04 20:00] VITALS: BP 128/62
--- NOTE | 2020-06-05 04:48 | NUR ---
Assumed care of patient this pm shift. Patient in good spirits, calm and cooperative. Alert and oriented x4. Takes medications whole with thin fluids. Assist x1 to go to the bathroom for a bowel movement this evening. Unsteady gait. Falls precautions in place. Hoyos catheter in place. Assessment shows no signs of acute distress. No concerns or questions at this time. We will continue to monitor per hospital policy.
[2020-06-05 06:05] LABS: ABSOLUTE NEUTROPHILS 4.1 thou/uL (1.4-8.2); BASOPHILS 0.6 % (0.0-2.0); EOSINOPHILS 2.9 % (0.0-3.0); HEMOGLOBIN 11.3 gm/dL (12.0-15.0); MCH 33.6 pg (26.0-34.0); MCHC 33.1 g/dL (28.0-37.0); MCV 101.3 fL (80.0-100.0); PLATELET COUNT 185 thou/uL (150-400); POLYS 55.5 % (36.0-66.0); RBC 3.35 mil/uL (4.20-5.00); RDW 13.7 % (10.5-14.5); WBC 7.3 thou/uL (4.0-11.0)
[2020-06-05 06:22] LABS: ALBUMIN 2.8 g/dL (3.4-5.0); CALCIUM 9.1 mg/dL (8.5-10.1); CREATININE 0.8 mg/dL (0.6-1.0); MAGNESIUM 1.8 mg/dL (1.8-2.4); PHOSPHORUS 4.2 mg/dL (2.6-4.7); POTASSIUM 3.9 mmol/L (3.5-5.1); TOTAL BILIRUBIN 0.3 mg/dL (0.2-1.0); TOTAL PROTEIN 5.9 g/dL (6.4-8.2)
[2020-06-05 08:00] VITALS: BP 103/50
--- NOTE | 2020-06-05 17:27 | NUR ---
ASSUMED CARE AT 0700 TODAY. SHE IS IN HER BED. SHE IS PLEASANT AND COOPERATIVE WITH ASSESSMENT AND TAKING HER MEDICATION. LUNGS CTA, ABD SOFT WITH + BOWEL SOUNDS. SHE WAS UP WITH PT. TODAY. SHE WAS ASSISTED TO THE BATHROOM ON SEVERAL OCCASIONS AND HAD 2 LOOSE STOOLS. THE AREA TO HER COCCYX WAS PINK. SHE WAS CLEANED UP
[2020-06-05 21:25] VITALS: BP 133/61
[2020-06-06 07:45] VITALS: BP 104/40
--- NOTE | 2020-06-06 09:05 | NUR ---
PT ALERT AND ORIENTED TO PLACE, PERSON, AND MONTH. PT HAS DIAMOND TO DD WITH CLEAR YELLOW URINE. PT DENIES ANY PAIN AT THIS TIME. PT UP WITH ASSIST WITH PT THIS AM. PT ABLE TO PUT ON SHOES WITH ASSIST. PT USES WALKER WHEN AMBULATING.
--- NOTE | 2020-06-06 11:34 | NUR ---
INITIAL REHAB ASSESSMENT: SW reviewed chart. Pt was admitted to on 06/02. SW placed call to pt's room. No answer. SW left voice message for pt's dtr, Gisella. Per chart, pt lives at home with her dtr, Gisella. Prior to admission, pt was using a walker to assist as needed. There is 1 step to enter the home. Pt has used [facility] in the past. Team conference to be held tomorrow afternoon. SW is following to assist as needed with discharge planning.
--- NOTE | 2020-06-06 15:00 | NUR ---
PT UP WALKING WITH THERAPY. PT TOLERATING ACTIVITY WELL.
[2020-06-06 19:58] VITALS: BP 125/51
--- NOTE | 2020-06-07 00:38 | NUR ---
ASSUMED CARE OF PT AT 1915 ON 06/06/20. PT IS A&OX4. IS ON ROOM AIR. DENIES PAIN. IS STABLE. IS UP WITH CONTACT GUARD ASSIST, GB, WALKER. PT IS JERKY AT TIMES WITH AMBULATION. HAS A SHUFFLED/QUICK STEP GAIT. FALL PRECAUTIONS & HOURLY ROUNDING CONTINUED THIS SHIFT. PT REFUSED TO REMOVE CLOTHES & PUT ON PJS. DIAMOND IN PLACE FOR RETENTION. IS TO BE REMOVED AT 0700 TODAY. VITALS ASSESSED. LABS REVIEWED. IS ABLE TO TURN SELF IN BED. IS CURRENTLY ASLEEP. CALL LIGHT WITHIN REACH. WILL CONTINUE TO MONITOR.
[2020-06-07 07:49] VITALS: BP 102/47
--- NOTE | 2020-06-07 09:57 | NUR ---
DIAMOND CATH REMOVED.
--- NOTE | 2020-06-07 13:09 | NUR ---
team conference: pt admitted to rehab w/metabolic encephalopathy. gait 175ft w/contact guard, 80-75 w/fww. severe memory deficit. mod cognitive deficit. d/c plan: target d/c date 06/16 w/ hh: pt. ot. st. pt will need 24/12 supervision as pt is unpredictable w/mobility.
[2020-06-07 17:53] LABS: URINE BILIRUBIN NEGATIVE (Negative); URINE BLOOD TRACE (Negative); URINE CLARITY SL CLOUDY; URINE COLOR YELLOW; URINE GLUCOSE-RANDOM* TRACE (Negative); URINE KETONES NEGATIVE (Negative); URINE LEUKOCYTES 3+ (Negative); URINE NITRITE NEGATIVE (Negative); URINE PROTEIN (DIPSTICK) NEGATIVE (Negative); URINE UROBILINOGEN 0.2 E.U./dl (0.2-1.0)
[2020-06-07 18:06] LABS: CASTS None Seen /LPF (None Seen); CRYSTALS None Seen /LPF (None Seen); SQUAMOUS 4-10 Moderate /LPF (0-3); URINE WBC >25 Many /HPF (0-5)
[2020-06-07 18:07] LABS: URINE RBC 0-2 Rare /HPF (0-2)
[2020-06-07 20:00] VITALS: BP 116/48
--- NOTE | 2020-06-08 02:26 | NUR ---
assumed care approx 1900 evening 06/07. pt sitting up in recliner watching tv at change of shift. pt pleasantly confused, forgetful, and cooperative. pt took hs meds with applesauce tolerating well. pt up to bathroom with walker to void in toilet twice so far tonight. pt appears to be sleeping off and on. bed alarm on and call light in reach. will continue to monitor.
[2020-06-08 08:00] VITALS: BP 122/54
--- NOTE | 2020-06-08 15:22 | NUR ---
ASSUMED CARE AT 0700. PT SLEPT FAIRLY WELL YESTERDAY. PT IS ALERT AND ORIENTATED. REPORTED PAIN IN HER L GREAT TOE AND WAS GIVEN TYELNOL AT SHIFT CHANGE. BLOOD SUGAR CHECKED AND MEDICATED WITH INSULIN AND GLIPIZIDE. PT APPETITE GOOD AND ATE 100%. HAD A LARGE BM TODAY. PARTICIPATING IN THERAPY AND PROGRESSING FAIRLY WELL. DIAMOND REMOVED YESTERDAY AND PT HAS VOIDED SEVERAL TIMES SINCE.
[2020-06-08 19:45] VITALS: BP 122/56
--- NOTE | 2020-06-09 03:36 | NUR ---
06-08-19 CARE TRAMSFERRED 191. PT AAOX3, VSS, RR EVEN AND NONLABORED ON RA. OBSERVED PT SLOW SHUFFLING GAIT WITH WALKER USING GAIT BELT. ZERO S/S OF ACUTE DISTRESS NOTED, PT WILL CONTINUE TO BE MONITOR PER PROTOCOL.
[2020-06-09 08:00] VITALS: BP 120/49
--- NOTE | 2020-06-09 13:26 | NUR ---
CM FAXED REFERRAL TO [facility] . [phone].
--- NOTE | 2020-06-09 16:26 | NUR ---
ASSUMED CARE AT 0700. PT IS ALERT AND ORIENTATED. DENIES ANY PAIN. SLEPT FAIRLY WELL YESTERDAY. APPETITE GOOD. UP WITH SBA TO BATHROOM. PT COMPLAINED OF HAVING "BUZZING IN THE EARS", "TWITCHING" DURING THERAPY SESSION. NO SIGNS OF ANY SEIZURE ACTIVITY NOTED. ALONSO LEMUS AWARE AND ASK FOR NEURO CONSULT. LEFT MESSAGE WITH NEUROLOGY TO SEE PT. PARTICIPATING IN [facility] THERAPIES MUCH TOLERATED. PLAN FOR [facility] ON 06/16/20 WITH HH. CONT TO MONITOR.
[2020-06-09 19:54] VITALS: BP 137/50
--- NOTE | 2020-06-10 00:45 | NUR ---
PATIENT SAT UP IN BED ALL EVENING. SHE IS A/0X4. SHE DENIES PAIN. SHE WAS UP X 1 SO FAR TO USE THE RESTROOM. SHE IS ASSIST X 1 WITH GAITBELT. SHE HAD LARGE SOFT STOOL. SHE DECLINED HER DOCUSATE SODIUM TONIGHT. PATIENT TOOK MEDS WHOLE WITH APPLESAUCE. HER ACCUCHECK WAS 251 TONIGHT. PATIENT CONTINUES TO RECIEVE ANTIBIOTICS FOR UTI. SHE DENIES BURNING,FREQUENCY OR PRESSURE ON URINATION. VSS. ROUTINE ROUNDS TO ASSESS STATUS AND SAFETY OF PATIENT. CONTINUING TO MONITOR.
[2020-06-10 05:29] LABS: HEMATOCRIT 34.4 % (37.0-47.0); HEMOGLOBIN 11.3 gm/dL (12.0-15.0); MCH 33.7 pg (26.0-34.0); MCV 102.2 fL (80.0-100.0); RBC 3.37 mil/uL (4.20-5.00); RDW 13.9 % (10.5-14.5); WBC 6.9 thou/uL (4.0-11.0)
[2020-06-10 06:13] LABS: CREATININE 0.9 mg/dL (0.6-1.0); MAGNESIUM 2.1 mg/dL (1.8-2.4); POTASSIUM 4.1 mmol/L (3.5-5.1)
[2020-06-10 08:00] VITALS: BP 117/47
--- NOTE | 2020-06-10 11:34 | NUR ---
[facility] requesting name of PCP. SW reviewed chart and spoke with pt's dtr, Gisella. Pt's PCP is Dr. Erasmo Nuñez at [facility]. SW provided info to [employer] planners. Discharge home with HH is planned for 06/16. [facility] is following to assist as needed with discharge planning.
--- NOTE | 2020-06-10 12:43 | NUR ---
PATIENT HAS BEEN UP, WORKING WITH THERAPY MOST OF THE DAY. SHE IS ALERT, AND ORIENTED X 1-2, SHE IS FORGETFUL, AND CONFUSED AT TIMES. PATIENT IS EATING MEALS, AND DRINKING FLUID WELL, CONSUMED 100% OF BREAKFAST/LUNCH. PATIENT TOOK ALL MEDICATION WHOLE IN APPLE SOURCE WITHOUT DIFFICULTY. LCTA, BS+X4, ABD SOFT, NON-TENDER TO TOUCH. PATIENT HAD MED SOFT BOWEL MOVEMENT THIS AFTERNOON. MRI OF THE HEAD COMPLETED, RESULT IN CHART. PATIENT DENIES HAVING PHYSICAL PAIN. BLOOD SUGAR THIS MORNING WITH RESULT OF 124, INSULIN GIVEN PER ORDER. BLOOD SUGAR BEFORE LUNCH WITH RESULT OF 60, A CUP OF APPLE JUICE GIVEN, INSULIN HELD PER NURSE PRACTITIONER'S ORDER. NO S/S OF HYPOGLYCEMIA NOTED. BLOOD SUGAR RECHEKED WITH RESULT OF 158. NO SIGN OF ACUTE DISTRESS NOTED AT THIS TIME, CURRENTLY IN BED RESTING, CALL LIGHT IN REACH, WILL CONTINUE TO MONITOR.
[2020-06-10 20:00] VITALS: BP 116/50
--- NOTE | 2020-06-11 03:57 | NUR ---
Assumed care this pm shift. Patient calm and cooperative. Alert and oriented x3. Takes medications whole in applesauce. Patient is considered a falls risk, falls precautions in place. Assist x1. Incontinent of bowel and bladder. Assessment shows no signs of acute distress. No new concerns voiced this shift. We will continue to monitor per hospital policy.
[2020-06-11 08:00] VITALS: BP 106/60
--- NOTE | 2020-06-11 13:15 | HC ---
[facility] [place] [place] [address] CONSULTATION Name: EMILE SHEEHAN Room #: 514-P ADM IN M.R.#: [id number] Admission: 06/02/20 Attend Phys: Brad Sweet MD Discharge: Date of : 39 Report #: [id number] THIS REPORT FOR: cc: FAM - No family physician/PCP FAM - No family physician/PCP Genesis Gallagher DO ~ HISTORY OF PRESENT ILLNESS: The patient is an 80-year-old female. I was asked to see in neurological consultation for a humming noise in her head. The patient states this humming noise began when she came to the hospital. Reviewing the medical record, she was brought to the hospital for intermittent twitching in the upper extremities. The patient was initially seen by Dr. King. Since she arrived in the hospital, the twitching resolved. She was found to have a UTI with a high CPK of just over 2000. Her TSH was also elevated at 16. She does have known hyperthyroidism. The patient also has a history of seizure disorder and was on Keppra. The twitching apparently improved with Keppra. Dr. King felt that the UTI may have aggravated the twitching. The patient has had a recent levetiracetam level drawn and it was 30.9 with normal being between 10 and 40. The patient was seen on rehab, she was sitting up in a chair. She told me that when she puts her feet on the ground, she feels this vibrating or humming sensation. When she takes her feet off the ground, she can then hear the vibrating sensation in her head. She has never had her hearing checked, but had no difficulty understanding me when I spoke to her. She denies neck or back pain. She denies weakness in her arms or legs. She does admit to having difficulty with her balance. I asked her how long she has had diabetes, which she was unable to tell me how long she has had it. The patient has had an EEG, which was nonspecific and showed some theta range slowing, but no epileptiform discharges. She has also had a CT scan of the head and this CT scan done 05/30/2020 showed no acute abnormalities, but she does have moderate volume loss and mild microvascular disease. PAST MEDICAL HISTORY: Hypothyroidism, vitamin D deficiency, hypertension, diabetes mellitus with peripheral neuropathy, hyperlipidemia, and degenerative arthritis. PAST SURGICAL HISTORY: Unremarkable. MEDICATIONS: In hospital include atorvastatin 40 mg daily, vitamin D 1000 units daily, B12 500 mcg daily, Colace 100 mg b.i.d., Lovenox 40 mg subcutaneous at bedtime, Pepcid 20 mg daily, Flomax 0.4 mg daily, folic acid 1 mg daily, Lantus insulin 15 units daily, sliding scale Humalog insulin, Humalog 5 units subQ with meals, Keppra 500 mg b.i.d., levothyroxine 100 mcg daily. ALLERGIES: Vitamin C, sorbitol, and doxycycline. [address] [address] CONSULTATION Name: EMILE SHEEHAN Room #: 514-P [facility] IN M.R.#: [id number] Admission: 06/02/20 Attend Phys: Brad Sweet MD Discharge: Date of : 39 Report #: [id number] VITAL SIGNS: Temperature 36.6, pulse rate 86, respiratory rate 18, blood pressure 137/50. Bedside pulse oximetry 97% on room air. LABORATORY DATA: Hematology: White blood cell count 6.9, hemoglobin 11.3, hematocrit 34.4, MCV 102.2, platelet count 188,000. Chemistry: Sodium 143, potassium 4.1, chloride 105, carbon dioxide 31, BUN 29, creatinine 0.9, glucose 163. Hemoglobin A1c 7.9. Liver functions normal. B12 done on 05/30/2020, 404. NEUROLOGIC: Cranial nerves 2-12 are grossly intact. Motor exam demonstrates symmetrical strength in all 4 extremities. The patient was sitting in a chair and was able to straighten her leg and lift it just over parallel to the floor. Reflexes are absent in the upper and lower extremities. Plantar responses are flexor. Coordination reveals intact [id number]. Sensory exam demonstrates decreased light touch to the knees in a stocking glove fashion. Proprioception appeared intact. IMPRESSION: This patient states that she has a humming noise in her head and when she puts her feet on the floor, has a humming sensation in her feet as well. The sensation is not present when she lies in bed in her feet. The patient may have tinnitus. It can be described by different people in different ways. She has had a normal CT of the head; however, I have ordered an MRI of the head today. This will be done without contrast. She also has a documented history of peripheral neuropathy and this may account for the vibratory sensation. She also has a low normal B12 and that it is just in the 400 range. She is on supplementation, but I have ordered a B12 level to make certain that she is absorbing the B12 was well. As an outpatient, I would recommend the patient have her hearing checked and that she be seen by an german professor or perhaps even an ENT. I did explain to her that if she has tinnitus, there is unfortunately no good medication for this. She also has diabetic peripheral neuropathy. I do not know that I would recommend any medication for that as it is not painful and gabapentin and although very safe can sometimes interfere with balance. I would recommend an outpatient EMG to see how advanced her neuropathy is. I thank you for your kind referral on this patient. <ELECTRONICALLY SIGNED> By: Genesis Gallagher DO 06/11/20 1315 [id number] Genesis Gallagher DO /nt
--- NOTE | 2020-06-11 19:47 | NUR ---
Alert and orientated X 3. Unusual, repetive topics. Calm, cooperative and compliant. Reg, steady gait with walker, impulsive at times. Breath sounds clear. Reg HR auscultated. Color pink with brisk capillary refill and palpable peripheral pulses. Continent of yellow urine and small brown stool per toilet. Active bowel sounds over soft, rounded abdomen. BG 228-124, insulin given per order.
[2020-06-11 19:50] VITALS: BP 121/44
--- NOTE | 2020-06-12 02:09 | NUR ---
MEDS WHOLE IN APPLESAUCE, UP TO TOILET WITH WALKER AND GAIT BELT. AWARE OF NEED FOR BED ALARM, BUT FEELS HERSELF GETTING STRONGER AND MORE STEADY DAY BY DAY. TALKS STEP BY STEP DURING MANY OF HER ACTIVITIES ABOUT THEIR RATIONALE.
[2020-06-12 09:49] VITALS: BP 121/47
--- NOTE | 2020-06-12 17:30 | NUR ---
ASSUMED CARE AT 0700 THIS MORNING. PT. IN BED, RESTING. SHE WAS AWAKENED FOR A BLOOD SUGAR AND VITALS. SHE IS PLEASANT AND COOPERATIVE WITH STAFF. SHE URINATED 2 TIMES TODAY. SHE WAS INCONTINENT ONE TIME OF THE TWO. SHE HAD A BOWEL MOVEMENT ONE TIME TODAY ALSO. SHE IS STAND BY ASSIST OF ONE. SHE SHE IS A&OX3. WHEN SHE IS TRYING TO EAT, REARRANGE THING, ETC, SHE WILL BE NOTED TO TALK TO HERSELF. WHEN ASKED ABOUT THIS, SHE REPLIED "IT JUST HELPS ME" SHE TOOK HER MEDICATIONS WITH [facility]. HER BLOOD SUGARS HAVE VARIED TODAY FROM 88 THIS MORNING TO 258 AT SUPPER TIME.
[2020-06-12 20:28] VITALS: BP 125/47
--- NOTE | 2020-06-13 02:15 | NUR ---
DENIES PAIN, IS ABLE TO WALK TO TOILET WITH CLOSE STANDBY ASSIST, GAIT BELT, AND WALKER WITH PADDED QUALITY ASSURANCE SUPERVISOR BODY. SIGNIFICANT STRESS INCONTINENCE WITH NEW BRIEF NEEDED APPROX 3 TIMES DAILY TO KEEP PANTS DRY. GLUCOSE 135 AT HS. TAKING MEDS SITTING AT BEDSIDE WITH APPLESAUCE HERE IS HER HABIT AT HOME. IN ROOM 514 NEAR NURSE STATION FOR FREQUENT OBSERVATION, HAS BEEN USING THE CALL LIGHT TO ASK FOR HELP PRIOR TO GETTING UP THIS SHIFT
[2020-06-13 08:00] VITALS: BP 121/55
--- NOTE | 2020-06-13 11:14 | NUR ---
ANIA reviewed chart. Discharge home with [facility] is planned for , 06/16. ANIA spoke with Ayla in intake at to provide update and confirm discharge plan. ANIA is following to assist as needed with discharge planning.
--- NOTE | 2020-06-13 14:31 | HC ---
[facility] [place] [address] CONSULTATION Name: EMILE SHEEHAN Room #: 514-P [facility] IN M.R.#: [id number] Admission: 06/02/20 Attend Phys: Brad Sweet MD Discharge: Date of : 39 Report #: [id number] THIS REPORT FOR: cc: CESAR - Judi family physician/PCP CESAR - No family physician/PCP Donte Malik PhD ~ DATE OF SERVICE: 06/11/2020 NEUROBEHAVIORAL STATUS EXAM ATTENDING PHYSICIAN: Brad Sweet MD TERMINAL COMPUTER OPERATOR: Dotne Malik, PhD CLINICAL PRESENTATION: The patient is an 80-year-old female, initially admitted to the [facility] through the Emergency Department with intermittent twitching. She has a past medical history that includes diabetes mellitus type 2, hypertension, hyperlipidemia, DJD, arthritis, neuropathy, hypothyroidism, seizure disorder, UTI and right eye blindness. On admission to the Emergency Department, she had a CT scan, which was negative for any acute abnormalities and toxicology was negative. She was admitted to the rehabilitation unit. Her assessment on admission to the rehabilitation unit was acute metabolic encephalopathy, medical complexity with generalized debility, UTI, rhabdomyolysis, questionable seizure disorder, hypothyroidism, vitamin D deficiency, hypertension, diabetes type 2 with peripheral neuropathy, hyperlipidemia, DJD and right eye blindness. A complete description of her medical condition and history can be found in her medical record. Neuropsychological consultation was requested to provide assistance in the assessment of cognitive and emotional status and provide recommendations and services as needed. Prior to this most recent admission, the patient was living with her daughter and grandson. The patient has 3 children. 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 There has been no prior treatment for depression or anxiety. Her in 2010. She indicates that she has never been able to drive. The patient was managing her own medication. TECHNIQUES UTILIZED: Clinical interview, review of medical records, staff consultation and behavioral observation, mini mental status exam 2 standard version, clock drawing, family interview-daughter. EXAMINATION FINDINGS: The patient was alert and cooperative with the assessment. She accurately described events surrounding her admission. There [facility] [address] [place] [address] CONSULTATION Name: AGUILAEMILE G Room #: 514-P [facility] IN M.R.#: [id number] Admission: 06/02/20 Attend Phys: Brad Sweet MD Discharge: Date of : 39 Report #: [id number] is no evidence of aphasia. Her thoughts are logical and goal oriented. There is no evidence of thought disorder. She does not report auditory or visual hallucinations. She denies feelings of depression or anxiety at this time. Her daughter describes a decline in her cognitive functioning that has about a five year duration with a more significant decline in the last two years. Recently, she has noticed medications that were not filled and . Her behavior had been very sedentary with minimal exercise or daily activity, possibly indicating depression. Patient describes her symptoms to include memory, tiredness and fatigue and difficulty with word finding. There is no history of alcohol/drug abuse. She indicates having been managing her own medications prior to this recent hospitalization. However, as indicated her daughter does not report that the patient has been properly managing medication. Performance on the MMSE 2 brief version was extremely low with a raw score of 9/16. She was 3/3 for initial registration, 3/5 for orientation to time, 3/[address] and 0/3 for immediate recall of 3 items after brief time delay and distraction. Performance on the MMSE 2 brief version was extremely low with a raw score of 19/30, which is a T score of 21 and percentile rank of less than 1. She was 1/5 for serial sevens, 2/2 for naming, 1/1 for repetition, 3/3 for auditory comprehension. She could read and follow a single command and write a sentence. The patient was able to copy a simple geometric design. She was unable to draw a clock or adequately place the hands within the clock or set the hands at a designated time suggesting visual spatial/constructive deficits along with executive dysfunction. The patient is presenting with variability in orientation with impaired immediate recall and sustained concentration. Executive deficits are also noted. DIAGNOSTIC IMPRESSION: Major neurocognitive disorder (dementia), unspecified, without behavior disorder -- likely in the mild range with moderate deficits in cognition. RECOMMENDATIONS: The patient will require increased supervision in the management of medication along with finances and nutrition. A followup neuropsychological evaluation will be of benefit to clarify neurocognitive status. Her daughter should be informed of the increasing supervision that will be [address] [address] CONSULTATION Name: EMILE SHEEHAN Room #: 514-P [facility] IN ..#: [id number] Admission: 06/02/20 Attend Phys: Brad Sweet MD Discharge: Date of : 39 Report #: [id number] necessary to maintain safety. Additionally, compensatory strategies are necessary for the deficits in neurocognitive functioning. Thank you very much for allowing me to provide the consultation on this patient. <ELECTRONICALLY SIGNED> By: Donte Malik, PhD 06/13/20 1431 [id number] Donte Malik, PhD /nt
[2020-06-13 19:57] VITALS: BP 120/49
--- NOTE | 2020-06-13 23:24 | NUR ---
PATIENT WAS UP IN CHAIR WHEN I ASSUMED CARE OF HER AT 1900. CHAIR ALARM WENT OFF SHE STOOD TO PUT HERSELF BACK IN BED. PATIENT FORGETS TO CALL FOR HELP AND USE THE CALL LIGHT AT TIMES. PATIENT IS A/0X3. SHE DENIES PAIN. SHE IS UP TO THE BATHROOM WITH GAIT BELT AND WC OR WALKER WITH ASSIST X 1. VSS. PATIENT'S HS ACCUCHECK WAS 185. NO INSULIN ORDERS FOR THIS TIME. PATIENT TOOK HER MEDS WHOLE WITH APPLESAUCE. PATIENT HAS BEEN RESTING IN BED AND WATCHING TV TONIGHT. BED ALARM IS ON. CALL LIGHT IN REACH. ROUTINE ROUNDS TO ASSESS STATUS AND SAFETY OF PATIENT. CONTINUING TO MONITOR.
[2020-06-14 07:40] VITALS: BP 112/52
--- NOTE | 2020-06-14 08:50 | NUR ---
PT SITTING IN CHAIR THIS AM. PT LIKES TO TAKE HER MEDS IN APPLESAUCE. PT LUNGS CLEAR. PT UP WITH WALKER WITH ASSIST. PT TOLERATING HER DIET. LBM 06/13. PT LIKES HER INSULIN GIVEN IN HER ABD NOT HER ARM.
--- NOTE | 2020-06-14 11:32 | NUR ---
FEROZ MAGAÑA W/ORACIO TO INFORM [facility] WILL CONTACT PT ONCE HOME TO ARRANGE VISITS. ORACIO STATED SHE WILL BE AT [facility] TODAY THIS AFTERNOON FOR FAMILY TRAINING AND STATED SHE CAN COMIT TO 24/12 SUPERVISON AND HELP W/CARES "I DONT GO ANYWHERE, I EVEN HAVE MT GROCERIES DELIVRED." PT ALSO NOTIFIED OF PLAN.
--- NOTE | 2020-06-14 13:15 | NUR ---
team conference: pt admitted to aru w/dx metabolic encephalopathy. gait 200ft standby w/fww. needs help managing medication. mod to severe cog/mem deficit. f/u w nueropsych with /dr. savage. cm provided pt w/card. pt needs fww walker. d/c plan is thurs w/hh. pt dtr is present at 5n for family training per team.
[2020-06-14 19:24] VITALS: BP 118/46
--- NOTE | 2020-06-15 01:57 | NUR ---
PATIENT IS ALERT X 4. SKIN WARM AND DRY. IS A VEGATARIAN. WALKS WITH QUAD CANE WHEN UP TO BATHROOM. WEARS BREIFS. ON ROOM AIR. LUNGS CTA. TAKES PILLS WITH APPLESAUCE. PAIN UNDER CONTROL. HAS FINE TREMORS NOTED. DOES WALK WITH A STEADY GAIT. WILL BE DC ON SATURDAY WITH HOME HEALTH. DENIES ANY PAIN A PRESENT. HAD A BM TONIGHT. REMAINS INCONT AT TIMES. CONT PLAN OF CARE.
[2020-06-15 08:00] VITALS: BP 112/64
[2020-06-15] MEDS ORDERED: LANTUS100 UNIT/M SUBQ (11:23)
[2020-06-15] MEDS ORDERED: TYLENOL325 MG PO (11:23)
[2020-06-15] MEDS ORDERED: VITAMIN D325 MC1 PO (11:23)
[2020-06-15] MEDS ORDERED: NOVOLOG100 UNIT/1 SUBQ (11:23)
[2020-06-15] MEDS ORDERED: FOLIC ACID1 MG PO (11:23)
[2020-06-15] MEDS ORDERED: LIPITOR40 MG PO (11:23)
[2020-06-15] MEDS ORDERED: FLOMAX0.4 MG PO (11:23)
[2020-06-15] MEDS ORDERED: VITAMIN B-12500 MCG PO (11:23)
[2020-06-15 12:05] VITALS: BP 112/64
--- NOTE | 2020-06-15 12:08 | NUR ---
All parties anticipating dc to home with [facility] tomorrow. [facility] [employer] liason to issue the pt a rwalker for home use. Script is on the chart. Will follow to finalize and fax HH orders in the am.
--- NOTE | 2020-06-15 15:29 | PLAN ---
[facility] [place] [address] REHAB UNIT PLAN OF CARE Name: EMILE SHEEHAN Room #: 514-P ADM IN M.R.#: [id number] Admission: 06/02/20 Attend Phys: Brad Sweet MD Discharge: Date of : 39 Report #: [id number] THIS REPORT FOR: cc: CESAR - No family physician/PCP CESAR - No family physician/PCP Brad Sweet MD ~ DATE OF SERVICE: 06/04/2020 PROGRESS NOTE/OVERALL PLAN OF CARE SUBJECTIVE: The patient was seen back earlier. She was in no distress. Temperature 36.8, pulse 80, respirations 16, blood pressure 111/38. She is being monitored closely by nursing and is close to the nursing station. The hospitalist service is monitoring her diabetes and medical management. She has the Hoyos catheter in place. She is working in therapies with transfers, min assist. Gait min assist 65 feet front-wheeled walker. In occupational therapy, lower body dressing is moderate assistance. In speech therapy, she is noted to have moderate cognitive deficits with severe memory deficits. ASSESSMENT: An 80-year-old white female with the following problem list: 1. Toxic metabolic encephalopathy. 2. Medical complexity with generalized debilitation. 3. Urinary tract infection. 4. Rhabdomyolysis. 5. Questionable seizure disorder. 6. Hypothyroidism. 7. Vitamin D deficiency. 8. Hypertension. 9. Diabetes mellitus type 2 with peripheral neuropathy. 10. Hyperlipidemia. 11. Degenerative arthritis. PLAN: The overall plan of care is based on the preadmission screen and information garnered from therapy assessments. 1. Estimated length of stay is probably at least 2 weeks. 2. Medical prognosis is reasonably good. 3. Anticipated interventions include the interdisciplinary acute inpatient rehabilitation program. 4. Anticipated functional outcomes would be for the patient to hopefully improve as far as transfers, mobility, and ADLs so that she can be ambulatory with the walker, perform basic ADLs and also to improve as far as cognition, so that she can return back to the home setting. 5. Discharge destination would be back home with her daughter. Daughter is noted to be working from home. 6. Expected therapy by discipline includes PT, OT and speech 1 [place] [address] REHAB UNIT PLAN OF CARE Name: EMILE SHEEHAN Room #: 514-P ADM IN [facility].#: [id number] Admission: 06/02/20 Attend Phys: Brad Sweet MD Discharge: Date of : 39 Report #: [id number] each five days a week throughout the duration of the acute inpatient rehabilitation stay. The patient's prognosis for significant practical improvement within a reasonable period of time appears good. Given the patient's complex medical condition and risk of further medical complication, rehabilitation services could not be safely provided at a lower level of care such as a retirement facility. <ELECTRONICALLY SIGNED> By: Brad Sweet MD 06/15/20 1529 [id number] Brad Sweet MD /TORREY
--- NOTE | 2020-06-15 17:00 | NUR ---
PT PLEASANTLY CONFUSED AND FORGETFUL. SHE WAS REMINDED THAT SHE WILL DC TO HOME TOMORROW AFTER 4PM, AND SHE STATED, "i AM GOING HOME TOMORROW? i DIDN;T KNOW THAT!" PT IS AWARE OF SOME OF HER MEDICATIONS, AND TAKES MEDS IN APPLESAUCE WITHOUT DIFFICULTY. PT WAS INCONT OF BLADDER DUE TO URGENCY X 1 TODAY AND WAS ASSISTED WITH BRIEF CHANGE. SHE HAS NOT C/O PAIN AT THIS TIME, AND HAS NOT HAD ANY "SHAKING" EPISODES OR COMPLAINTS.
[2020-06-15 19:50] VITALS: BP 115/50
--- NOTE | 2020-06-16 04:05 | NUR ---
UP TO TOILET WITH SBA, GAIT BELT, WALKER. STRESS INCONTINENCE DUE TO URGENCY. CALLS FOR ASSIST. DECLINED LIDOCAINE PATCH, DENIES PAIN. LOOKING FORWARD TO DISCHARGE
[2020-06-16 07:30] VITALS: BP 122/52
--- NOTE | 2020-06-16 10:24 | NUR ---
ASSUMED CARE AT 0700. PATIENT IS ALERT AND ORIENTED X3. PATIENT WYNN'S, MANAGER FUNCTIONAL ARE EQUAL. LUNGS ARE CLEAR. ABD IS SOFT WITH BSX4. PATIENT UP TO THE BR WITH SBA. PATIENT HAS STRESS INCONTINENTS AND REQUIRED NEW BRIEF. FALL AND SAFETY PROTOCOLS IN PLACE. UP IN THE CHAIR FOR MEALS. DENIES PAIN AT THIS TIME. CONTINUES TO PROGRESS TOWARDS D/C GOALS. PLAN D/C LATER TODAY. WILL SEND D/C SUMMARY AND H & P WITH DAUGHTER. WALKER WAS DELIVERED TO PATIENTS ROOM. WILL CONTINUE TO MONITER.
[2020-06-16 11:02] VITALS: BP 112/64
--- NOTE | 2020-06-16 11:08 | NUR ---
FAXED DISCHARGE ORDERS/SUMMARY TO [facility]. P [phone]; FAX [phone]
--- NOTE | 2020-06-16 16:59 | NUR ---
DISCHARGE INSTRUCTIONS GIVEN TO PATIENT AND DAUGHTER. PATIENT LEFT UNIT IN GOOD CONDITION, WITH WALKER. UP WITH SBA. DAUGHTER
--- NOTE | 2020-06-16 17:44 | NUR ---
PT WAS SBA FROM W/C TO CAR. PATIENT SEATBELT WAS APPLIED AND SHE LEFT WITH HER DAUGHTER IN GOOD CONDITION.
--- NOTE | 2020-06-19 21:06 | EEG ---
[facility] [place] [address] ELECTROENCEPHALOGRAM Name: EMILE SHEEHAN Room #: 514-P [facility] IN M.R.#: [id number] Admission: 06/02/20 Attend Phys: Brad Sweet MD Discharge: 06/16/20 Date of : 39 Report #: [id number] THIS REPORT FOR: //name// DATE OF SERVICE: 06/07/2020 This patient is being evaluated for altered mental status. EEG was done by placing the electrode by standard 10-20 system of electrode placement. Both referential and sequential montages were used for recording. Background activity in this patient's EEG is about 7 Hz and 20 microvolt. Photic stimulation is unremarkable. The patient went to sleep that is associated with bilateral slowing and vertex sharp waves. Throughout the record, no active epileptiform activity was noticed. IMPRESSION: This patient's EEG is intermixed with some theta range slowing. That is a nonspecific abnormality, which can occur with encephalopathy, effect of psychotropic medication, dementia, etc. Clinical correlation is recommended. <ELECTRONICALLY SIGNED> By: Jamel Godinez MD 06/19/20 2106 1844 [id number] Jamel Godinez MD /nt
== END 2020-06-16 17:43 | disposition home health service (06) | DRG 92 ==
PROVIDERS: Internal Medicine; Nurse Practitioner Family; Psychiatry & Neurology Psychiatry; ADMIT Physical Medicine & Rehabilitation; ATTEND Physical Medicine & Rehabilitation
DX: G92 Toxic encephalopathy (principal); N39.0 Urinary tract infection, site not specified; M62.82 Rhabdomyolysis; N17.9 Acute kidney failure, unspecified; R53.81 Other malaise; E03.9 Hypothyroidism, unspecified; E55.9 Vitamin D deficiency, unspecified; I10 Essential (primary) hypertension; E11.42 Type 2 diabetes mellitus with diabetic polyneuropathy; E78.5 Hyperlipidemia, unspecified; M19.90 Unspecified osteoarthritis, unspecified site; G40.909 Epilepsy, unspecified, not intractable, without status epilepticus; F01.50 Vascular dementia, unspecified severity, without behavioral disturbance, psychotic disturbance, mood disturbance, and anxiety; H93.19 Tinnitus, unspecified ear; H54.61 Unqualified visual loss, right eye, normal vision left eye; B96.1 Klebsiella pneumoniae [K. pneumoniae] as the cause of diseases classified elsewhere; E53.8 Deficiency of other specified B group vitamins; Z88.1 Allergy status to other antibiotic agents; Z79.899 Other long term (current) drug therapy
CPT/HCPCS: 10112

== ENCOUNTER 2020-12-13 19:18 | Inpatient (IN) | payer OTHER ==
[~2020-12-13] VITALS: Ht 157.5 cm; Wt 56.2 kg
--- NOTE | ~2020-12-13 | EMS ---
[facility] [address] [place] [address] EMS Patient Care Report Name: EMILE SHEEHAN Room #: 451-P ADM IN M.R.#: [id number] Admission: 12/13/20 Attend Phys: Jaren Mera MD Discharge: Date of : 38 Report #: [id number] THIS REPORT FOR: //name// Report Transmitted: 12/14/2020 10:30 EMS Care Summary [place], [place]/[facility] Incident [id number] @ 12/13/2020 18:46 Incident Location [address] [place], [place] [id number] Patient EMILE SHEEHAN Female, 80 Years 1940 Patient Address [address] [place], [place] [id number] Patient History Hypertension (HTN),Seizures,Hypothyroidism,Type 1 Diabetes, Patient Allergies No known allergies, Patient Medications Levetiracetam, Famotidine, Folic acid, Atorvastatin, Chief Complaint WEAKNESS Disposition Transported No Lights/[place] Dispatch Reason Sick Person Transported To [facility] Narrative M41 DISPATCHED TO A SICK PERSON. M41 AOS AND FOUND A FEMALE PT WITH FAMILY. FAMILY STATES THAT THE PT FELL IN THE DRIVEWAY YESTERDAY AND THAT SHE HAS BEEN WEAK SINCE YESTERDAY BEFORE SHE [facility] [address] [place] [address] EMS Patient Care Report Name: EMILE SHEEHAN Room #: 451-P ADM IN Nish#: [id number] Admission: 12/13/20 Attend Phys: Jaren Mera MD Discharge: Date of : 38 Report #: [id number] FELL. THE PT STATES THAT SHE IS NOT HAVING ANY PAIN. PT DENIES LOC. THE PT STATES THAT SHE GOT HER SECOND COVID VACCINE YESTERDAY. THE PT DENIES ANY CHANGES IN URINE HOWEVER SHE DID URINATE ON HERSELF AND IT DOES HAVE AN ODOR. PT RECENTLY TREATED FOR UTI LAST MONTH. PT DENIES ANY PAIN. PT DENIES CP, SOA, DIZZINESS, NV, ABD PAIN. PT MOVED TO THE COT AND INTO THE AMBULANCE. VITALS OBTAINED. BGA OBTAINED. M[address] [facility]. EN ROUTE PT REMAINED STABLE. REPORT GIVEN TO MAYCO CERVANTES. SIGNATURES OBTAINED. TRANSFER OF CARE TOOK PLACE. M41 IN SERVICE. 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 Initial Vitals @19:05P: 104,R: 18,BP: 170/98,Pain: 0/10,GCS: 14,Glucose: 196,SpO2: 95,Revised Trauma: 12, @19:07P: 103,R: 18,BP: 175/78,Pain: 0/10,GCS: 14,SpO2: 95,Revised Trauma: 12, Assessments @18:54MENTAL:Confused,Place Oriented,SKIN:Hot,HEENT:Head/Face: No Abnormalities,Neck/Airway: No Abnormalities,LUNG SOUNDS:General: No Abnormalities,ABDOMEN:General: No Abnormalities,PELVIS//GI:No Abnormalities,EXTREMITIES:Capillary Refill: Right Upper: < 2 Sec,Left Arm: No Abnormalities,Right Arm: No Abnormalities,Left Leg: No Abnormalities,Right Leg: No Abnormalities,PULSE:Radial: 2+ Normal,NEURO:Other, Impression Generalized Weakness Procedures @18:54ALS AssessmentResponse: UnchangedSucceeded Timeline 18:43,Call Received 18:43,Dispatch Notified 18:46,Dispatched 18:48,En Route 18:53,On Scene 18:54,At Patient [facility] [address] [place] [address] EMS Patient Care Report Name: EMILE SHEEHAN Room #: 451-P ADM IN ..#: [id number] Admission: 12/13/20 Attend Phys: Jaren Mera MD Discharge: Date of : 38 Report #: [id number] 18:54,ALS Assessment,Response: UnchangedSucceeded, 19:03,Depart Scene 19:05,BP: 170/98 M,PULSE: 104,RR: 18 R,SPO2: 95 Ox,ETCO2: ,B,PAIN: 0,GCS: 14, 19:07,BP: 175/78 M,PULSE: 103,RR: 18 R,SPO2: 95 Ox,ETCO2: ,BG: ,PAIN: 0,GCS: 14, 19:15,At Destination 19:28,Call Closed Disclaimer v1.1 Copyright 2020 [employer] This EMS Care Summary contains data elements from the applicable legal record (which may be displayed differently). It is designed to provide pertinent information for the following purposes: continuity of care, clinical quality, and state data reporting. The complete legal record is available to ED staff and administrators of the receiving hospital in [facility]'s Patient Tracker. All data is provided "as is."
[~2020-12-13 19:18] MED LIST changes: +FLOMAX0.4 MG PO; +LIPITOR40 MG PO; +TYLENOL325 MG PO; +VITAMIN B-12500 MCG PO; +VITAMIN D325 MC1 PO
[2020-12-13 19:19] VITALS: BP 147/70
[2020-12-13 19:48] LABS: URINE BILIRUBIN NEGATIVE (Negative); URINE BLOOD TRACE (Negative); URINE CLARITY CLEAR; URINE COLOR YELLOW; URINE GLUCOSE-RANDOM* NEGATIVE (Negative); URINE KETONES NEGATIVE (Negative); URINE LEUKOCYTES-REFLEX NEGATIVE (Negative); URINE NITRITE-REFLEX NEGATIVE (Negative); URINE PROTEIN (DIPSTICK) NEGATIVE (Negative); URINE SPECIFIC GRAVITY 1.025 (1.005-1.035); URINE UROBILINOGEN 0.2 E.U./dl (0.2-1.0)
[2020-12-13 20:29] LABS: ABSOLUTE NEUTROPHILS 11.3 thou/uL (1.4-8.2); BASOPHILS 0.3 % (0.0-2.0); EOSINOPHILS 0.1 % (0.0-3.0); HEMATOCRIT 37.7 % (37.0-47.0); HEMOGLOBIN 12.5 gm/dL (12.0-15.0); LYMPHOCYTES 9.6 % (24.0-44.0); MCH 33.7 pg (26.0-34.0); MCHC 33.2 g/dL (28.0-37.0); MCV 101.4 fL (80.0-100.0); MONOCYTES 5.8 % (1.0-8.0); POLYS 84.2 % (36.0-66.0); RBC 3.72 mil/uL (4.20-5.00); RDW 13.4 % (10.5-14.5)
[2020-12-13 20:30] LABS: ANION GAP 9 mmol/L (7-16); BUN 28 mg/dL (7-18); CALCIUM 9.3 mg/dL (8.5-10.1); CHLORIDE 107 mmol/L (98-107); CO2 27 mmol/L (21-32); GLUCOSE 192 mg/dL (74-106); POTASSIUM 3.9 mmol/L (3.5-5.1); SODIUM 143 mmol/L (136-145)
[2020-12-13 20:53] LABS: ALBUMIN 3.7 g/dL (3.4-5.0); SGOT 59 U/L (15-37); SGPT 33 U/L (14-59); TOTAL BILIRUBIN 0.7 mg/dL (0.2-1.0); TOTAL PROTEIN 7.4 g/dL (6.4-8.2); TROPONIN-I <0.06 ng/mL (<0.06)
[2020-12-13 21:04] LABS: PLATELET COUNT 130 thou/uL (150-400)
[2020-12-13] MEDS ORDERED: KEPPRA XR500 MG PO (22:34)
[2020-12-13 23:17] VITALS: BP 156/60
[2020-12-13 23:30] VITALS: BP 127/89
[2020-12-14 00:01] VITALS: BP 147/57
--- NOTE | 2020-12-14 01:32 | NUR ---
Pt admitted from ED with weakness/Rhabdo. A/OX3,with confusion/forgetfulness noted.Keeps repeating self during conversation. VSS.Denies pain on assessment. Weak and very unsteady on feet,assist of 2. Has an abrasion on left knee from fall at home,redness on perirectal area;moisture barrier applied. Unable to reconcil home meds d/t cognition as well as sign paperwork. Will pass on to day shift nurse. Fall precautions in place,reminded to call for help as needed, frequent checks on pt. NSR on telemetry will continue to monitor pt.
[2020-12-14] MEDS ORDERED: NOVOLOG100 UNIT/M SUBQ (03:10)
[2020-12-14] MEDS ORDERED: LANTUS SUBQ (03:10)
[2020-12-14 04:30] VITALS: BP 132/59
[2020-12-14 05:37] LABS: HEMATOCRIT 32.5 % (37.0-47.0); HEMOGLOBIN 11.2 gm/dL (12.0-15.0); MCH 34.7 pg (26.0-34.0); MCHC 34.5 g/dL (28.0-37.0); MCV 100.6 fL (80.0-100.0); RBC 3.23 mil/uL (4.20-5.00); RDW 13.3 % (10.5-14.5); WBC 7.7 thou/uL (4.0-11.0)
[2020-12-14 05:41] LABS: CALCIUM 8.3 mg/dL (8.5-10.1); CREATININE 0.9 mg/dL (0.6-1.0); POTASSIUM 3.8 mmol/L (3.5-5.1)
--- NOTE | 2020-12-14 07:26 | EKG ---
[address] [address] ELECTROCARDIOGRAM REPORT Name: EMILE SHEEHAN Room #: 451-P ADM IN M.R.#: [id number] Admission: 12/13/20 Attend Phys: Jaren Mera MD Discharge: Date of : 38 Report #: [id number] [facility] ED Test Date: 2020-12-13 Test Time: 19:47:26 Pat Name: EMILE SHEEHAN Department: Room: [facility] Gender: F Mine Superintendent: NAYELI : 1940 Requested By: Rui Du Order Number: [id number] MD: Dorian Syed Measurements Intervals Walker Rate: 90 P: 76 WV: 154 QRS: 32 QRSD: 79 T: 25 QT: 357 QTc: 437 Interpretive Statements Sinus rhythm Compared to ECG 05/30/2020 16:01:32 No significant changes Electronically Signed On 12-14-2020 7:26:10 CDT by Dorian Syed [email or web address] <ELECTRONICALLY SIGNED> By: Dorian Syed MD, [facility] 12/14/20 0726 46 46 Dorian Syed MD, FACC /EPI
[2020-12-14 08:13] VITALS: BP 135/54
--- NOTE | 2020-12-14 13:50 | NUR ---
Nutrition: pt admitted with weakness, rhabdomyolosis. PMH: DM2, HTN, HLD, baseline dementia. Risked for poor intake and weight loss. Unable to interview pt-called dtr whom pt lives with. No recent weight loss reported and pt has been eating fine at home per dtr. Is vegetarian-will not eat meat but will eat most other protein sources. Diet order adjusted and added carb controlled. BG 229. On B12, vitamin D, folic acid. Will offer glucerna daily to supplement present intake but consider low nutrition risk.
--- NOTE | 2020-12-14 14:13 | NUR ---
ASSUMED PT CARE THIS AM. PATIENT IS A&OX2, MAKES SOME NEEDS KNOWN. PATIENT HAS BEEN INCONTINENT THIS SHIFT. PATIENT REPORTS NO PAIN, NUMBNESS, OR TINGLING. PATIENT TOOK MEDICATIONS WITHOUT ISSUE THIS AM. PATIENT IS ON ROOM AIR. FALL PRECAUTIONS ARE IN PLACE, CALL LIGHT WITHIN REACH.
[2020-12-14 16:00] VITALS: BP 133/54
--- NOTE | 2020-12-14 16:00 | NUR ---
PT ADMITTED RELATED TO WEAKNESS, RHABDO S/P FALL IN DRIVEWAY. CM REVIEWED CHART AND SPOKE WITH CARE TEAM. CM MET WITH PT AT BEDSIDE THIS DAY. PT INDICATED SHE RESIDES IN A HOUSE WITH HER STR ORACIO. PT INDICATED 3 STEPS TO ENTER AND NO STEPS SHE USES INSIDE. 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 PT'S PCP IS DR. FIGUEROA. CM CALLED AND SPOKE WITH PT'S DTR ORACIO WHO SHE LIVES WITH. SHE INDICATED THAT PT HAD BEEN INDEPENDNET WITH ADLS MACHINE VENEER REPAIRER BUT THAT SHE HELPS WITH MEAL PREP AND MED ADMINISTRATION. SHE STATED THAT MOM NEEDS REMINDERS TO COMPLETE ADLS. [facility]. PT AND DTR RECEPTIVE TO POST ACUTE CARE STAY WITH POSSIBLE TRANSITIONS TO LTC. CM TO ASK [employer] TO REACH OUT TO DTR REGARDING SECONDARY MEDICAID. CM FOLLOWING REGARDING DC PLANNING.
[2020-12-14 19:30] VITALS: BP 131/62
--- NOTE | 2020-12-15 05:06 | NUR ---
PATIENT AOX2 CONFUSED AND FORGETFUL. PATIENT HAS STRESS INCONTIENCE,PERICARE AND BARRIEER CREAM APPLIED NEEDED. PATIENT NEED MAXIMUM ASSIST WITH ADL, BED MOBILITY, TRANSFER AND TOILETING X2. FALL PRECAUTION IN PLACE. PATIENT IN BED ASLEEP AT THIS TIME BREATHING REGULAR AND UNLABOURED.
[2020-12-15 07:32] VITALS: BP 150/70
--- NOTE | 2020-12-15 11:18 | NUR ---
ASSUMED PT CARE THIS AM. PT A&OX1, ABLE TO MAKE SOME NEEDS KNOWN BUT NOT ALL. PATIENT REMAINS INCONTINENT OF BLADDER. NO BM THIS SHIFT. PATIENT REPORTS NO PAIN, NAUSEA, VOMITING, OR TINGLING. IV PATENT, FLUIDS INFUSING. PATIENT TOOK MEDICATIONS WITHOUT ISSUE THIS AM. PATIENT REMAINS ON TELE. UP WITH MAX ASSIST. FALL PRECAUTIONS ARE IN [place], CALL LIGHT IN REACH.
[2020-12-15 12:38] LABS: CALCIUM 8.2 mg/dL (8.5-10.1); CREATININE 0.8 mg/dL (0.6-1.0); POTASSIUM 4.3 mmol/L (3.5-5.1)
--- NOTE | 2020-12-15 13:38 | NUR ---
CM CALLED PT'S DTR ORACIO AND ASKED WHERE [facility] WANTED REFERRALS SENT. SHE INDICATED THAT SHE HADN'T LOOKED AT THE LIST YET AND PLAND TO LOOK IT OVER WITH HER SISTER THIS EVENING. CM TO FOLLOW UP EARLY AM.
[2020-12-15 16:17] VITALS: BP 133/57
--- NOTE | 2020-12-15 18:45 | NUR ---
A #4F MIDLINE WAS PLACED FOR THIS PATIENT PER HOSPITAL POLICY. THE 20CM LINE WAS ADVANCED WITHOUT DIFFICULTY. THE LINE WAS SECURED AND RELEASED FOR USE
[2020-12-15 19:20] VITALS: BP 157/80
--- NOTE | 2020-12-16 05:40 | NUR ---
PT TRANSFERRING TO BEDSIDE COMMODE WITH ASSIST AND IS TOLERATING FAIR. DENIES PAIN. RESTING COMFORTABLY. NO NEEDS VOICED. FREQUENT OBSERVATION.
[2020-12-16 07:20] VITALS: BP 138/59
--- NOTE | 2020-12-16 13:42 | NUR ---
CM CALLED PT'S DTR THIS AM AND LEFT VM ASKING WHAT FACILITIES THEY WANTED REFERRALS SENT TO FOR SHORT TERM SKILLED REHAB SERVICES. DTR CALLED BACK AND SHE INDICATED THEY WANTED REFERRAL SENT TO [place] FOR REVIEW FOR SHORT TERM SKILLED WITH POSSIBLE TRANSITION TO LTC. CM FAXED REFERRAL.
[2020-12-16 16:00] VITALS: BP 129/57
--- NOTE | 2020-12-16 16:43 | NUR ---
PT ACCEPTED FOR ADMISSION TO [facility]. ANTICAPATE DC TOMORROW Saturday12/17/20. CALL ADMISSIONS AT THE FACILITY AT OR TO FACILITATE DC. FAX ORDERS TO . CALL REPORT TO .
--- NOTE | 2020-12-16 19:31 | NUR ---
SW told the staff that the patient would not leave today, but leave tomorrow, the secratry heard about it and told the transportation, who arrived around 6 pm, about it.
[2020-12-16 19:49] VITALS: BP 130/52
--- NOTE | 2020-12-17 02:55 | NUR ---
PT CARE ASSUMED WITH PT IN BED WATCHING TV.PT IS A/O X2.PT IS UP WITH X1 ASSIST TO THE BSC AND VERY UNSTEADY ON FOOT.PT IV MIDLINE ON NICA WITH NS AT 100CC/HR.PT IS IMPULSIVE.PT APPEAR TO BE IN NO ACUTE DISTRESS.PT IS ON ROOM AIR.WILL CONTINUE TO MONITOR
[2020-12-17 05:46] LABS: HEMATOCRIT 32.1 % (37.0-47.0); HEMOGLOBIN 11.1 gm/dL (12.0-15.0); MCH 34.3 pg (26.0-34.0); MCHC 34.7 g/dL (28.0-37.0); RBC 3.24 mil/uL (4.20-5.00); WBC 6.5 thou/uL (4.0-11.0)
[2020-12-17 06:01] LABS: CALCIUM 8.3 mg/dL (8.5-10.1); CREATININE 0.8 mg/dL (0.6-1.0)
[2020-12-17 07:52] VITALS: BP 140/93
[2020-12-17] MEDS ORDERED: BAYER CHEWABLE81 MG PO (12:39)
--- NOTE | 2020-12-17 15:46 | NUR ---
Assumed pt care this am, vs stable. Pt is unsteady on her gait, uses the walker and gait belt to transfer. diet and medications are tolerated well. Blood sugar checks done and medications given as per emar. Pt is to DC to [facility], report given pharmacy picking tech is scheduled at 4 pm today. IV removed, bath given.
== END 2020-12-17 16:18 | DRG 74 ==
LOC: ER 19:18 → 4W 23:12 → EROBS 23:12 → 4W 12-14 00:10
PROVIDERS: Nurse Practitioner Family; Physician Assistant; ADMIT Internal Medicine; ATTEND Internal Medicine
PROC: 05HC33Z Insertion of Infusion Device into Left Basilic Vein, Percutaneous Approach (ICD-10-PCS; principal; 2020-12-15)
PROC: B54NZZA Ultrasonography of Left Upper Extremity Veins, Guidance (ICD-10-PCS; principal; 2020-12-15)
DX: E11.42 Type 2 diabetes mellitus with diabetic polyneuropathy (principal); M62.82 Rhabdomyolysis; N17.9 Acute kidney failure, unspecified; E03.9 Hypothyroidism, unspecified; I10 Essential (primary) hypertension; M19.90 Unspecified osteoarthritis, unspecified site; E78.5 Hyperlipidemia, unspecified; D72.829 Elevated white blood cell count, unspecified; E53.8 Deficiency of other specified B group vitamins; E55.9 Vitamin D deficiency, unspecified; F03.90 Unspecified dementia, unspecified severity, without behavioral disturbance, psychotic disturbance, mood disturbance, and anxiety; R53.81 Other malaise; S80.02XA Contusion of left knee, initial encounter; W18.39XA Other fall on same level, initial encounter; S80.212A Abrasion, left knee, initial encounter; Z20.822 Contact with and (suspected) exposure to COVID-19; Z79.4 Long term (current) use of insulin; Z79.899 Other long term (current) drug therapy; Z88.8 Allergy status to other drugs, medicaments and biological substances; Y93.89 Activity, other specified; Y92.89 Other specified places as the place of occurrence of the external cause; Y99.8 Other external cause status
CPT/HCPCS: 10045; 27000